=== PATIENT | female | born 1960 ===

== ENCOUNTER 2017-11-20 15:55 | Emergency (ER) | payer OTHER ==
[~2017-11-20] VITALS: Ht 160 cm; Wt 54.4 kg
== END 2017-11-20 19:13 | disposition home or self-care (01) ==
LOC: ER 15:55
DX: J11.1 Influenza due to unidentified influenza virus with other respiratory manifestations (principal)

== ENCOUNTER 2025-04-09 10:28 | Outpatient (CLI) | payer OTHER | END 2025-04-09 10:29 | disposition home or self-care (01) | LOC: NUCLEAR 10:28 | DX: M81.0 Age-related osteoporosis without current pathological fracture (principal) ==